=== PATIENT | male | born 1965 | race African-American/Black ===

== ENCOUNTER 2025-05-30 10:12 | Emergency (ER) | payer SELFPAY ==
--- NOTE | ~2025-05-30 | CT_ITS ---
CT abdomen pelvis w con Clinical History: upper abd pain, nvd . Comparison: None Technique: Axial images lung bases to symphysis pubis IV contrast information not listed in PACS Coronal, sagittal reformats CT images acquired with automatic exposure control for dose reduction DLP: 620 mGy-cm Findings: Lung bases: Clear. Visualized heart and pericardium: Unremarkable. Liver: Steatosis. Gallbladder: Unremarkable. Spleen: Enlarged. Pancreas: Regional stranding and mild fluid around head. Head mildly enlarged. Normal glandular enhancement. Regional vessels remain patent. Adrenal glands: Unremarkable. Kidneys: Right kidney- No hydronephrosis. No renal stones. Cortical defect. Small cyst. Left kidney- No hydronephrosis. No renal stones. Cortical cyst. Distal esophagus/stomach: Gastric antral wall thickening. Small bowel loops: Normal caliber and wall thickness. Colon: Normal caliber and wall thickness. Normal RLQ appendix. Nodes: No enlarged nodes. Peritoneum: No ascites. No free air. Urinary bladder: Unremarkable. Prostate: Prominent, with intravesicular protrusion. Bones: No acute bony abnormality. Prominent Schmorl's node superior endplate S1, inferior endplate L4. Soft tissues: Right inguinal hernia with fat. Aorta: No aneurysm or dissection. IVC: Unremarkable. Main portal vein/SMV/splenic vein: Patent. IMPRESSION: 1. Acute pancreatitis, mainly limited to pancreatic head. Head slightly enlarged, underlying mass not excluded. Recommend short interval follow-up MRI or endoscopic ultrasound. 2. Gastritis of antrum. Reviewed, dictated and finalized at location R. [facility]PER IMPRESSION: 1. Acute pancreatitis, mainly limited to pancreatic head. Head slightly enlarg ed, underlying mass not excluded. Recommend short interval follow-up MRI or end oscopic ultrasound. 2. Gastritis of antrum.
[2025-05-30 10:43] VITALS: BP 202/142; PULSE 98; RESP 16; TEMP 36.2; O2SAT 100
[2025-05-30 11:25] VITALS: BP 169/124; PULSE 97; RESP 18; O2SAT 95
[2025-05-30] MEDS: SODIUM CHLORIDE 0.9% IV 1,000 ML 999 ML IV CONT ×2 (11:36→12:14)
[2025-05-30 11:43] LABS: Alanine Aminotransferase 20 U/L (6-50); Albumin Level 4.5 g/dL (3.5-5.1); Alkaline Phosphatase 136 U/L (38-126); Anion Gap 7 mmol/L (4-12); Aspartate Amino Transferase 25 U/L (17-59); Bilirubin,Total 1.0 mg/dL (0.2-1.3); Blood Urea Nitrogen 18 mg/dL (9-20); Calcium 9.3 mg/dL (8.4-10.2); Carbon Dioxide 28 mmol/L (22-30); Chloride 98 mmol/L (98-107); Estimated CRCL calculation 60 ml/min; Estimated Glomerular Filt Rate 55; Glucose 293 mg/dL (65-110); Magnesium 2.2 mg/dL (1.6-2.3); Potassium 4.3 mmol/L (3.4-5.0); Sodium 133 mmol/L (137-145); Total Protein 8.8 g/dL (6.3-8.2)
[2025-05-30 11:55] LABS: Add Urine Microscopic? YES; Appearance Urine Clear (Clear); Glucose Urine UA 3+ mg/dL (Negative); Leukocyte Esterase Ur Negative LEU/UL (Negative); Nitrate Urine Negative (Negative); Non Pathogenic Casts 0-2; Specific Grav Ur 1.041 (1.001-1.035)
[2025-05-30 11:56] LABS: Hematocrit 47.7 % (42.0-52.0); Hemoglobin 17.7 g/dL (14.0-18.0); Immature Granulocyte Percent A 0.2 % (0-0.5); Lymphocytes Absolute Auto 2.13 K/mm3 (0.9-3.2); Mean Corpuscular HGB Conc 37.1 g/dl (32-36); Mean Corpuscular Hemoglobin 29.9 pg (26-34); Mean Corpuscular Volume 80.6 fl (80-100); Nucleated Red Blood Cells Absolute Auto 0.000 K/mm3 (0.0-0.012); Nucleated Red Blood Cells Perc 0.0 % (0.0-0.2); Platelet Count Result 147 k/mm3 (150-375); Red Blood Count 5.92 M/mm3 (4.6-6.20); White Blood Count 5.8 K/mm3 (4.5-10.0)
--- NOTE | 2025-05-30 12:08 | ED.RECABL ---
HPI - Recheck/Abnormal Lab/Rx General Chief Complaint: Recheck/Abnormal Lab/Rx Stated Complaint: ELEVATED BLOOD SUGAR, PREDIABETIC Time Seen by Provider: 05/30/25 11:15 Source: patient Mode of arrival: ambulatory Limitations: no limitations History of Present Illness HPI narrative: Patient is a 59 y/o male who presents to the ED with c/o N/V/D. Patient reports having persistent nausea, vomiting, diarrhea over the past 7 days. States he has been unable to keep down food or drink. States he has been having pain throughout his upper abdomen which has been intermittent. Notes he did not eat well over the . Denies sick contacts. Other family members have eaten the same foods. Denies fevers. States he went to an urgent care today and was noted to have glucose and ketones in his urine. POC glucose was elevated there. He was sent to the ED for further evaluation. Patient denies previous history of diabetes. He does have history hypertension and states he is mostly on medication for this, but does not take it. Has had issues with insurance, recently started a new job and is in the process of getting insurance. Related Data Allergies Allergy/AdvReac Type Severity Reaction Status Date / Time No Known Allergies Allergy Verified 05/30/25 10:14 Review of Systems Review of Systems: All systems reviewed & are unremarkable except as noted in HPI. All systems reviewed & are unremarkable except as noted in HPI and below Exam Narrative: GENERAL: Well appearing, obese with BMI of 30.8, non-toxic, in no acute distress. HEAD: Normocephalic, atraumatic. RESPIRATORY: Airway patent, respirations nonlabored. Clear to auscultation bilaterally, no rales, rhonchi, wheezing. CARDIOVASCULAR: Regular rate and rhythm without murmurs, rubs, or gallops. ABDOMINAL: Soft, mild diffuse tenderness, nondistended. Normoactive BS. MUSCULOSKELETAL: Moves all extremities. No gross deformities. SKIN: Warm, dry, normal color. NEURO: A&O X3. Speech clear. Cranial nerves II-XII grossly intact. Steady gait. No ataxic movements. PSYCHIATRIC: Appropriate mood and affect. Normal interaction. Course Vital Signs Vital signs: Vital Signs Temperature 97.2 F L 05/30/25 10:43 Pulse Rate 98 05/30/25 10:43 Respiratory Rate 16 05/30/25 10:43 Blood Pressure 202/142 H 05/30/25 10:43 Pulse Oximetry 100 05/30/25 10:43 Temperature 97.2 F L 05/30/25 10:43 Pulse Rate 89 05/30/25 16:08 Respiratory Rate 16 05/30/25 16:08 Blood Pressure 171/124 H 05/30/25 16:41 Pulse Oximetry 97 05/30/25 16:08 MDM MDM Narrative Medical decision making narrative: Patient presented to ED with 1 week history of nausea, vomiting, diarrhea. Intermittent upper abdominal pain. Unable to keep down food or drink. Also reporting elevated blood sugar at urgent care today without previous dx of diabetes. Patient hypertensive upon arrival. He reports history of previous hypertension. States he is supposed to be on medication for this but does not take it. Unsure of what medication. Vital signs are otherwise stable. BG upon arrival 312. CBC w/o leukocytosis. H&H stable. Platelets 147. CMP with sodium slightly low 133. Creatinine 1.34. No records to compare to. Fluids initiated. Blood sugar 293 on CMP. Normal bicarb. No anion gap. VBG without evidence of acidosis. No evidence of DKA at this time. A1c is 8.8%. Consistent with new onset diabetes. Lactic acid within normal range. Liver enzymes are within normal range. UA with evidence of dehydration. Fluids are ongoing. No signs of infection. CT scan of abdomen/pelvis was obtained: IMPRESSION: 1. Acute pancreatitis, mainly limited to pancreatic head. Head slightly enlarged, underlying mass not excluded. Recommend short interval follow-up MRI or endoscopic ultrasound. 2. Gastritis of antrum. Lipase is only 263. Given 2 L of fluid in the ED. Also given Pepcid. Triglycerides within normal range. Lactic acid within normal range. Discussed lab and imaging findings extensively with patient. He denies previous history of pancreatitis. Denies history of gallbladder issues. He does not drink alcohol. Pain is under control at this time. He has not required any pain control in the ED. Patient is feeling improved after IV fluids. Able to tolerate p.o. intake. Discussed discharge home to follow clear liquids, vs admission with close OP PCP/GI f/u. Also discussed starting patient on metformin and amlodipine for diabetes and HTN. Discussed risks and benefits of both. Utilized shared decision-making. Patient would prefer to go home. He does not wish to be admitted at this time. Discussed clear liquids, plenty of fluid hydration. Will also prescribe short course of pain medication, nausea medicine for home, Pepcid for gastritis. Discussed follow-up with GI. Discussed very strict return precautions. Also recommended patient continue to monitor blood sugars and blood pressures at home and keep recording of these. Patient is in agreement with this plan, feels comfortable going home, voiced understanding of return precautions. Discharged in stable condition. Blood pressure improved to 170 systolic at time of D/C. Patient is otherwise asymptomatic regarding hypertension. Denying any red flag symptoms. Likely result of noncompliance with previous medication. Differential Diagnosis Differential Diagnosis: DKA, hyperglycemia, HHS, gastroenteritis, gastritis, colitis, pancreatitis, dehydration Medical Records I have reviewed the following patient records and this information was taken into consideration when formulating the assessment and plan.: previous labs, previous ER visits, previous hospitalizations and previous clinic visits Lab Data MDM Lab Attestation statement: I personally reviewed the patient's lab results. 05/30/25 11:18 05/30/25 11:18 Labs: Lab Results 05/30/25 05/30/25 05/30/25 Range/Units 10:46 11:18 11:43 WBC 5.8 (4.5-10.0) K/mm3 RBC 5.92 (4.6-6.20) M/mm3 Hgb 17.7 (14.0-18.0) g/dL Hct 47.7 (42.0-52.0) % MCV 80.6 (80-100) fl MCH 29.9 (26-34) pg MCHC 37.1 H (32-36) g/dl RDW 11.9 (11.5-14.5) % Plt Count 147 L (150-375) k/mm3 MPV 11.0 H (7.4-10.4) fl Immature Gran % (Auto) 0.2 (0-0.5) % Neut % (Auto) 52.7 (45.5-73.1) % Lymph % (Auto) 37.0 (18.3-44.2) % [place] % (Auto) 8.5 (2.6-8.5) % Eos % (Auto) 0.9 (0-4.4) % Baso % (Auto) 0.7 (0.2-1.2) % Lymph # (Auto) 2.13 (0.9-3.2) K/mm3 [place] # (Auto) 0.5 (0.1-0.6) K/mm3 Eos # (Auto) 0.1 (0-0.3) K/mm3 Baso # (Auto) 0.0 (0.0-0.1) K/mm3 Abs Immat Gran (auto) 0.01 (0.00-0.031) K/mm3 Absolute Neuts (auto) 3.0 (1.3-6.7) K/mm3 Absolute Nucleated RBC 0.000 (0.0-0.012) K/mm3 Nucleated RBC % 0.0 (0.0-0.2) % Sodium 133 L (137-145) mmol/L Potassium 4.3 (3.4-5.0) mmol/L Chloride 98 (98-107) mmol/L Carbon Dioxide 28 (22-30) mmol/L Anion Gap 7 (4-12) mmol/L BUN 18 (9-20) mg/dL Creatinine 1.34 H (0.7-1.3) mg/dL Estim Creat Clear Calc 60 ml/min Estimated GFR 55 L (59 - ) Glucose 293 H (65-110) mg/dL POC Capillary Glucose 312 H (65-105) mg/dl Hemoglobin A1c 8.8 H (<5.7) % Lactic Acid (0.7-2.0) mmol/L Calcium 9.3 (8.4-10.2) mg/dL Phosphorus 3.4 (2.5-4.5) mg/dL Magnesium 2.2 (1.6-2.3) mg/dL Total Bilirubin 1.0 (0.2-1.3) mg/dL AST 25 (17-59) U/L ALT 20 (6-50) U/L Alkaline Phosphatase 136 H (38-126) U/L Total Protein 8.8 H (6.3-8.2) g/dL Albumin 4.5 (3.5-5.1) g/dL Triglycerides (<150) mg/dL Lipase (23-300) U/L Urine Color Yellow (Yellow) Urine Appearance Clear (Clear) Urine pH 5.0 (5.0-9.0) Ur Specific [place] 1.041 H (1.001-1.035) Urine Protein 2+ H (Negative) mg/dL Urine Glucose (UA) 3+ H (Negative) mg/dL Urine Ketones 2+ H (Negative) mg/dL Ur Blood (Man) Negative (Negative) Urine Nitrate Negative (Negative) Urine Bilirubin Negative (Negative) Urine Urobilinogen 0.2 (<2.0) mg/dL Leukocyte Esterase Rfl Negative (Negative) ALEJANDRA/UL Urine RBC 0-2 (0-2) /hpf Urine WBC 0-5 (0-3) /hpf Ur Squamous Epith Cells None seen (Few) /hpf Urine Bacteria None seen /hpf Urine Casts 0-2 05/30/25 Range/Units 12:45 WBC (4.5-10.0) K/mm3 RBC (4.6-6.20) M/mm3 Hgb (14.0-18.0) g/dL Hct (42.0-52.0) % MCV (80-100) fl MCH (26-34) pg MCHC (32-36) g/dl RDW (11.5-14.5) % Plt Count (150-375) k/mm3 MPV (7.4-10.4) fl Immature Gran % (Auto) (0-0.5) % Neut % (Auto) (45.5-73.1) % Lymph % (Auto) (18.3-44.2) % [place] % (Auto) (2.6-8.5) % Eos % (Auto) (0-4.4) % Baso % (Auto) (0.2-1.2) % Lymph # (Auto) (0.9-3.2) K/mm3 [place] # (Auto) (0.1-0.6) K/mm3 Eos # (Auto) (0-0.3) K/mm3 Baso # (Auto) (0.0-0.1) K/mm3 Abs Immat Gran (auto) (0.00-0.031) K/mm3 Absolute Neuts (auto) (1.3-6.7) K/mm3 Absolute Nucleated RBC (0.0-0.012) K/mm3 Nucleated RBC % (0.0-0.2) % Sodium (137-145) mmol/L Potassium (3.4-5.0) mmol/L Chloride (98-107) mmol/L Carbon Dioxide (22-30) mmol/L Anion Gap (4-12) mmol/L BUN (9-20) mg/dL Creatinine (0.7-1.3) mg/dL Estim Creat Clear Calc ml/min Estimated GFR (59 - ) Glucose (65-110) mg/dL POC Capillary Glucose (65-105) mg/dl Hemoglobin A1c (<5.7) % Lactic Acid 1.4 (0.7-2.0) mmol/L Calcium (8.4-10.2) mg/dL Phosphorus (2.5-4.5) mg/dL Magnesium (1.6-2.3) mg/dL Total Bilirubin (0.2-1.3) mg/dL AST (17-59) U/L ALT (6-50) U/L Alkaline Phosphatase (38-126) U/L Total Protein (6.3-8.2) g/dL Albumin (3.5-5.1) g/dL Triglycerides 94 (<150) mg/dL Lipase 263 (23-300) U/L Urine Color (Yellow) Urine Appearance (Clear) Urine pH (5.0-9.0) Ur Specific [place] (1.001-1.035) Urine Protein (Negative) mg/dL Urine Glucose (UA) (Negative) mg/dL Urine Ketones (Negative) mg/dL Ur Blood (Man) (Negative) Urine Nitrate (Negative) Urine Bilirubin (Negative) Urine Urobilinogen (<2.0) mg/dL Leukocyte Esterase Rfl (Negative) ALEJANDRA/UL Urine RBC (0-2) /hpf Urine WBC (0-3) /hpf Ur Squamous Epith Cells (Few) /hpf Urine Bacteria /hpf Urine Casts ABG Data ABG results: 05/30/25 12:15 VBG pH 7.426 H* VBG pCO2 39.1 L VBG pO2 28.0 L VBG HCO3 25.1 O2 Delivery Device Room air O2 Liters/Min 0.0 FiO2 21 Attestation: I personally reviewed and interpreted this ABG as follows: Imaging Data Attestation: I personally reviewed and interpreted this imaging study as follows: Radiologist's impression: ITS Impressions Abdomen/Pelvis CT 05/30/25 12:18 IMPRESSION: 1. Acute pancreatitis, mainly limited to pancreatic head. Head slightly enlarged, underlying mass not excluded. Recommend short interval follow-up MRI or endoscopic ultrasound. 2. Gastritis of antrum. Discharge Plan Discharge Clinical Impression: Diabetes mellitus, new onset, Asymptomatic hypertension Pancreatitis Qualifiers: Chronicity: acute Pancreatitis type: unspecified pancreatitis type Acute pancreatitis complication: unspecified Qualified Code(s): K85.90 - Acute pancreatitis without necrosis or infection, unspecified Patient Disposition: Home Condition: Stable Instructions: Antibiotic Form, Pancreatitis (ED), Clear Liquid Diet (ED), Chronic Hypertension (ED), Diabetic Hyperglycemia (ED), Hypertension and Diabetes (ED), Diabetes and Nutrition (ED), Diabetes and Exercise (ED), Type 2 Diabetes Management for Adults (ED) Additional Instructions: Take amlodipine daily for high blood pressure. Monitor blood pressures at home and keep recording of this. Follow-up closely with your primary care doctor. Take metformin twice daily as prescribed for diabetes. Monitor blood sugars at home and keep recording of these numbers as well. Follow-up closely with primary care doctor. You were diagnosed with pancreatitis today, however your pancreatic enzymes were within normal range. Recommend increasing fluid intake, clear liquid/bland diet over the next several days until pain and nausea are resolved. You may take Tylenol, [place] as needed for more severe pain. Utilize Zofran as needed for nausea. Recommend also taking Pepcid twice daily for stomach irritation. Follow-up with your primary care doctor and GI for further evaluation. Call offices to make appointments. Return to ED if you experience worsening or severe pain, unable to keep down food or drink, fevers, rectal bleeding, dark black stools, chest pain, difficulty breathing, severe headaches, numbness or weakness of arm or leg, severe dizziness or lightheadedness, passing out, or any other symptoms of concern. Patient Language: [place] Prescriptions: New amlodipine 5 mg tablet 5 mg PO DAILY Qty: 60 0RF metformin 500 mg tablet 500 mg PO BID Qty: 60 0RF hydrocodone-acetaminophen 5-325 mg tablet 1 tablet PO Q6H PRN (Reason: pain) Qty: 10 0RF ondansetron 4 mg tablet,disintegrating 4 mg PO Q8H PRN (Reason: nausea and vomiting) Qty: 15 0RF famotidine 20 mg tablet 20 mg PO BID Qty: 60 0RF (DME) lancets-blood glucose strips 30 gauge combo pack See Rx Instructions .Route Qty: 200 0RF Rx Instructions: As directed Follow-up/Referrals: PHYSICIAN,DEPUTY DIRECTOR OF FINANCE [Primary Care Provider, Internal Medicine] Bam Gómez MD [Physician, Gastroenterology] Landon Viera MD [Physician, Family Practice] Stand Alone Forms: Work/School Release IP Time of Disposition: 15:13
[2025-05-30 12:11] LABS: Hemoglobin A1C 8.8 % (<5.7)
[2025-05-30] MEDS: FAMOTIDINE 20 MG/2 ML VIAL IV PUSH (12:13)
[2025-05-30] MEDS: ONDANSETRON INJ 4 MG/2 ML VIAL IV PUSH (12:13)
[2025-05-30 12:18] LABS: Fractional Inspired Oxygen 21 %; HCO3 VBG 25.1 mEq/l (24.0-30.0); PCO2 VBG 39.1 mmHg (42.0-48.0); PO2 VBG 28.0 mmHg (35.0-45.0); pH VBG 7.426 (7.300-7.400)
[2025-05-30 12:19] LABS: Liters per Minute 0.0 LPM
[2025-05-30 13:11] LABS: Lipase 263 U/L (23-300); Triglycerides 94 mg/dL (<150)
[2025-05-30 13:15] VITALS: BP 219/131; PULSE 98; RESP 16; O2SAT 98
[2025-05-30 16:08] VITALS: BP 212/110; PULSE 89; RESP 16; O2SAT 97
[2025-05-30 16:41] VITALS: BP 171/124
== END 2025-05-30 17:05 | disposition home or self-care (01) ==
PROVIDERS: Emergency Medicine; Emergency Provider Physician Assistant
DX: K85.90 Acute pancreatitis without necrosis or infection, unspecified (principal); E11.9 Type 2 diabetes mellitus without complications; R11.2 Nausea with vomiting, unspecified; I10 Essential (primary) hypertension
CPT/HCPCS: 36415; 74177; 80053; 81001; 82803; 82948; 83036; 83605; 83690; 83735; 84100; 84478; 85025; 96361; 96374; 96375; 99284; A9270; J0360; J2405; J7030; Q9967

== ENCOUNTER 2025-06-05 13:02 | Emergency (ER) | payer SELFPAY ==
--- OUTSIDE RECORDS SUMMARY | 2025-06-05 08:40 | XMS_ITS | Encounter Summary ---
Author Organization [facility] Address [address] [email or web address] [address] Care Team Providers Care Physical Chemistry Professor Name Role Phone Pcp, No Primary Care Provider [phone] Reason for Visit * Reason Comments Blood Pressure Evaluation Encounter Details Date Type Department Care Team (Late st Contact Info) Description 06/05/2025 7:40 AM [facility] E-Visit [facility] [address] [place] [address] Viridiana Vitale NP [address] [place] [address] Hypertension, unspecified type (Primary Dx); Diabetes mellitus, new onset (CMS/HCC) Social History Tobacco Use Types Packs/Day Years Used Date Smoking Tobacco: Never Smokeless Tobacco: Never Tobacco Cessation:Counseling Given: Yes Sex and Gender Information Value Date Recorded Sex Assigned at Not on file Legal Sex Male 8:13 PM EST Gender Identity Not on file Sexual Orientation Not on file documented as of this encounter Last Filed Vital Signs Vital Sign Reading Time Taken Comments Blood Pressure 180/116 06/05/2025 7:48 AM [facility] Pulse - - Temperature - - Respiratory Rate - - Oxygen Saturation - - Inhaled Oxygen Concentration - - Weight - - Height - - Body Mass Index - - documented in this encounter Functional Status * Is the person deaf or does he/she have serious difficulty hearing? Answer Date of Assessment Author * Is this person blind or does he/she have serious difficulty seeing even when wearing glasses? Answer Date of Assessment Author * Does this person have serious difficulty walking or climbing stairs? Answer Date of Assessment Author * Does this person have difficulty dressing or bathing? Answer Date of Assessment Author * Because of a physical, mental, or emotional condition, does this person have difficulty doing errands alone such as visiting a doctor's office or shopping? Answer Date of Assessment Author documented as of this encounter Mental Status * Because of a physical, mental, or emotional condition, does this person have serious difficulty concentrating, remembering, or making decisions? Answer Entry Date Author documented in this encounter Patient Instructions * Patient Instructions* Viridiana Vitale NP - 06/05/2025 7:40 AM [facility] Images from the original note were not included. Seek immediate emergency medical attention if you experience sudden vision loss or eye pain, severeor worsening abdominal pain, difficulty swallowing, stiff neck, shortness of breath, coughing or vomiting up blood, chest pain, increased fever, unexplained weight loss, or blood in stool. Report to the nearest emergency department for any of the following: Fever >99.9 F, flank pain,nausea/vomiting, or abdominal pain. If symptoms do not improve within 2-3 days of treatment or do not fully resolve return to [facility] or primary care provider for re-evaluation. It is important to promptly share test results with your healthcare provider. Seek immediate medical attention if you develop any chest discomfort, difficulty breathing, severe headache, confusion, numbness or weakness, difficulty in speech or pronouncing words or sudden vision problems. Your blood pressure was very high today at 180 over 120 or higher. You are being referred to a higher level of care TODAY for additional evaluation and/or testing and possible treatment. If you develop any chest discomfort, difficulty breathing, severe headache, confusion, numbness or weakness, difficulty with speech or word pronunciation or sudden vision problems, call 911 immediately. Your blood pressure was found to be in an acceptable range today and we recommend a follow up bloodpressure appointment in 6 weeks as long as your health does not change. Blood pressure varies from day to day and we want to ensure your blood pressure is not rising higher than recommended. Occasiona l/periodic blood pressure checks are always helpful. If changes in your health occur during this time, please have your blood pressure checked sooner. Your blood pressure was higher than recommended and medication has been started or changed to help lower it. It is very important you have it rechecked in 3-7 days. Return to [facility] or make an appointment with your primary care provider. If changes in your health occur during this time, please have your blood pressure checked sooner. High Blood Pressure Seek Medical Attention If You: Think you are have having a reaction to medications you are taking Have recurrent headaches or feel dizzy Have swelling in your ankles Have trouble with your vision What is High Blood Pressure? High blood pressure (also called hypertension) is when your blood moves through your arteries at a higher pressure than normal and that forces your heart to work harder to pump the blood. What are the Complications of High Blood Pressure? When your blood pressure gets too high or stays high for a long time, it can cause health problems such as: Kidney disease or kidney failure Heart attack and heart failure Stroke Vision problems Circulation problems, poor blood supply to the legs How are the causes of High Blood Pressure? There are many different causes and your provider can help you find out what might be causing your pressure to be too high. What are the Signs of High Blood Pressure? High blood pressure doesn???t usually have warning signsor symptoms, so many people don???t realize they have it and that is why regular monitoring is important. Prevention and Treatment: Often high blood pressure can be controlled with lifestyle changes and when necessary, medications. Adopting heart healthy habits can help: Maintain a Healthy Weight Eat a heart healthy diet full of vegetables, fruits and whole grains that are high in fiber Be Physically Active every day Find heart healthy ways to reduce stress and increase relaxation Don???t use tobacco products Limit your intake of alcohol, caffeine and salt Monitor your blood pressure regularly: ask your provider how often Take your medications as prescribed, even when you???re feeling well 07/2016 www.[email or web address] 1.866.389.ELVIE (5977 Blood Pressure Medications and You High Blood Pressure Medications Your provider has determined you need prescription medication, in addition to lifestyle changes, tocontrol your high blood pressure. By treating high blood pressure, you can help prevent a stroke, heart attack, heart failure, kidney failure and peripheral artery disease. What types of high blood pressure medications are available? There are many medications, known as antihypertensives, available by prescription to lower your blood pressure. Your provider has selected a medication determined to be most appropriate for you. People often respond differently to medications. Most people go through a trial period to find the medication that works best for them. Give your body a chance to adjust to the medication. It may take some time, but the results will usually be worth it. If you don't feel well after taking a medication, let your healthcare provider know so he/she can adjust your treatment. Never change or stop taking your blood pressure medication without discussing with your healthcare provider first. Tell all of your healthcare providers about all of the nvnm-gzo-jnqxkea and prescription medications you are taking. Always read the labels and warnings of rjhq-kol-tenlziz (OTC) medications. Some medications and supplements can raise your blood pressure and/or interfere with the effectiveness of your blood pressure medication. A few examples of OTC medications to be cautious of include cold and flu remedies suchas nasal decongestants, non-steroidal anti-inflammatory drugs (NSAIDs) such as ibuprofen, and diet pills. If you are unsure if you can take an OTC medication, ask your pharmacist or healthcare provider before taking. Even if you're feeling fine, NEVER cut back or stop taking your blood pressure medication. Take your medication exactly as prescribed and never adjust or stop taking without discussing with your healthcare provider. Taking your medication every other day or splitting in half to make them last longer may cause your blood pressure to rise to dangerous levels. If you feel your diet, increased physical activity or other lifestyle changes have lowered your blood pressure, review your measurements with your healthcare provider. Keep appointments with your healthcare providers. It's very important to monitor your progress and make adjustments to your treatment to keep your blood pressure under control. High blood pressure is a lifelong condition, and by partnering with yourhealthcare team, you can successfully reach your treatment goals and enjoy the benefits of better health. A johnson to better control of your blood pressure is a good partnership with your healthcare team. Self-Monitoring is important: Self-monitoring at home is very helpful in your long-term management of diabetes. Please remember to bring in your home blood sugar log. There are many health apps that might be useful. Consider exploring these options. documented in this encounter Progress Notes * Viridiana Vitale NP - 06/05/2025 7:40 AM [facility] Virtual Visit Subjective: Subjective Patient ID: Delta Beasley is a 60 y.o. male. HPI Patient Dx last week with HTN, DM type 2 and Pancreatitis and recently discharged from hospital. BPhas improved but remains elevated at home. Patient is asymptomatic. Check BP daily at home. Is currently taking 5 mg of Amlodipine. Does not have an established PCP or Pay Station Collector as recommended yet; awaiting insurance. Check BS regularly at home getting numbers in the 140s but after dinner gets readings in the 200s. Denies hypoglycemic events. Unable to view labs in care everywhere but notes A1C is 8. Blood Pressure Evaluation Reason for visit: Initial visit Have you seen your PCP for this condition: No Duration of condition: Newly diagnosed Do you have a scheduled appointment: No If no PCP, why: Other (no insurance) Associated symptoms: no blurred vision, no headaches, no dizziness, no chest pain, no shortness of breath, no malaise and no change in speech and language CAD risks: diabetes Prescribed HTN medication: Yes Review of Systems Constitutional: Negative for fatigue and fever. Eyes: Negative for blurred vision. Respiratory: Negative for shortness of breath. Cardiovascular: Negative for chest pain and palpitations. Neurological: Negative for dizziness and headaches. Tobacco Use History[1] History reviewed. No pertinent past medical history. History reviewed. No pertinent surgical history. History reviewed. No pertinent family history. Objective: Objective Physical Exam Constitutional: General: He is not in acute distress. Appearance: Normal appearance. He is not ill-appearing. Comments: Patient appears fatigued during video visit. HENT: Head: Normocephalic. Pulmonary: Effort: Pulmonary effort is normal. No respiratory distress. Neurological: Mental Status: He is alert. Psychiatric: Attention and Perception: Attention normal. Mood and Affect: Mood normal. Speech: Speech normal. Behavior: Behavior normal. Behavior is cooperative. Thought Content: Thought content normal. Cognition and Memory: Cognition normal. Judgment: Judgment normal. Assessment/Plan: Assessment HPI provided by Self Based on today's visit:history and physical exam only, as no relevant testing deemed necessary patient's visit diagnosis is/includes No diagnosis found. Patient has a history of chronic conditions and those listed in the visit diagnoses were reviewed today. They are currently unstable on medications. Plan Treatment plan includes: Orders Placed: No orders of the defined types were placed in this encounter. Medications ordered this visit Pending Prescriptions Disp Refills amLODIPine (NORVASC) 10 MG tablet 30 tablet 0 Sig: Take 1 tablet (10 mg total) by mouth daily for 30 days Current medication list and any new medications prescribed or recommended today were reviewed with the patient and specific instructions were provided Yes Provider Recommendations Amlodipine dosage of 5mg is adjusted to 10 mg during today's visit. Continue to monitor every day. [facility] today to establish care and for further management of diabetes. Please bring all available labs. In the event your BP is higher than observed today or you begin to have symptoms of high blood pressure, please follow up in the ER. 48 hours follow up call placed. Follow up care instructions were provided and reviewed?with the Patient. All questions were answered. Patient verbalized understanding of plan of care today. Patient was seen for blood pressure treatment and blood pressure medication change. Patient received counseling on healthy diet, weight loss, and stress reduction. I am having Delta Beasley maintain his metFORMIN, HYDROcodone-acetaminophen, ondansetron, famotidine, amLODIPine, lancets-blood glucose strips, and HYDROcodone-acetaminophen. I have verified the patient's location, and I am licensed to practice in that state. Audio and video technology were used to conduct this virtual visit. Patient (or parent/guardian as applicable) consented to virtual care. Patient is: not a minor [1] Social History Tobacco Use Smoking Status Never Smokeless Tobacco Never documented in this encounter Plan of Treatment Not on file documented as of this encounter Visit Diagnoses Diagnosis Hypertension, unspecified type- Primary Diabetes mellitus, new onset (CMS/HCC) documented in this encounter Care Teams Physical Chemistry Professor Relationship Specialty Start Date End Date Pcp, No PCP - General Family Medicine 06/05/25 documented as of this encounter
[2025-06-05 13:06] VITALS: BP 186/110; PULSE 79; RESP 18; TEMP 36.4; O2SAT 97
[2025-06-05 14:52] VITALS: RESP 18; O2SAT 97
[2025-06-05 14:54] VITALS: BP 193/122; PULSE 87; RESP 14; O2SAT 96
--- NOTE | 2025-06-05 17:14 | ED_ITS ---
HPI - Recheck/Abnormal Lab/Rx General Chief Complaint: Recheck/Abnormal Lab/Rx Stated Complaint: HTN Time Seen by Provider: 06/05/25 15:01 History of Present Illness HPI narrative: Patient with history of hypertension, diabetes, has been out of care of PCP for a while. He takes metformin 500 once a day, takes amlodipine 5 mg daily. Has no symptoms. Related Data Allergies Allergy/AdvReac Type Severity Reaction Status Date / Time No Known Allergies Allergy Verified 06/05/25 14:55 Review of Systems Review of Systems: All systems reviewed & are unremarkable except as noted in HPI and below Exam Narrative: EXAMINATION OF ORGAN SYSTEMS/BODY AREAS: Constitutional: Vital signs per nursing GENERAL:No acute distress, non-toxic appearing. HEAD: Normal with no signs of head trauma. EYES: EOMI, conjunctiva normal ENT: Hearing grossly intact LUNGS: Nonlabored breathing. HEART: Regular rate and rhythm ABD: Soft, nontender to palpation EXT: Normal range of motion SKIN: No rashes or lesions. NEURO: Alert. No gross focal sensory or strength deficits. No facial droop, speech is clear, normal gait. PSYCH: Normal affect Course Vital Signs Vital signs: Vital Signs Temperature 97.5 F L 06/05/25 13:06 Pulse Rate 79 06/05/25 13:06 Respiratory Rate 18 06/05/25 13:06 Blood Pressure 186/110 H 06/05/25 13:06 Pulse Oximetry 97 06/05/25 13:06 Oxygen Delivery Room Air 06/05/25 13:06 Temperature 97.5 F L 06/05/25 13:06 Pulse Rate 87 06/05/25 14:54 Respiratory Rate 14 06/05/25 14:54 Blood Pressure 193/122 H 06/05/25 14:54 Pulse Oximetry 96 06/05/25 14:54 Oxygen Delivery Room Air 06/05/25 13:06 MDM MDM Narrative Medical decision making narrative: Patient with asymptomatic hypertension. No signs or symptoms of end organ dysfunction; no chest pain or shortness of breath, neurological deficits, severe headaches, visual disturbance, oliguria, or symptoms of dissection/AAA). Long- term risks of hypertension, especially uncontrolled, were discussed including increased risks of kidney disease, vascular disease, stroke and heart disease. We discussed lifestyle modifications including diet and exercise. I did review his recent labs here, I will refill his amlodipine, start him on losartan, and increase his metformin, and provide script for short course, patient expressed understanding of the instructions and strongly advised to follow-up with PMD for further management. Differential Diagnosis Differential Diagnosis: Hypertension, diabetes, etc. Discharge Plan Discharge Clinical Impression: Asymptomatic hypertension Patient Disposition: Home Condition: Stable Instructions: Chronic Hypertension (ED), Hypertension and Diabetes (ED) Additional Instructions: Please follow up with a primary care doctor, start the medications as prescribed. You can always return for any further issues especially if you develop any symptoms such as severe headache, new numbness or weakness anywhere, abdominal pain, or anything else concerning Patient Language: Icelandic Prescriptions: New amlodipine 10 mg tablet 10 mg PO DAILY Qty: 30 0RF metformin 500 mg tablet 500 mg PO BID Qty: 60 0RF losartan 25 mg tablet 25 mg PO DAILY Qty: 30 0RF No Action amlodipine 5 mg tablet 5 mg PO DAILY Qty: 60 0RF metformin 500 mg tablet 500 mg PO BID Qty: 60 0RF hydrocodone-acetaminophen 5-325 mg tablet 1 tablet PO Q6H PRN (Reason: pain) Qty: 10 0RF ondansetron 4 mg tablet,disintegrating 4 mg PO Q8H PRN (Reason: nausea and vomiting) Qty: 15 0RF famotidine 20 mg tablet 20 mg PO BID Qty: 60 0RF (DME) lancets-blood glucose strips 30 gauge combo pack See Rx Instructions .Route Qty: 200 0RF Rx Instructions: As directed Follow-up/Referrals: PHYSICIAN,HORSE TRAINER [Primary Care Provider, Internal Medicine] aLndon Viera MD [Physician, Family Practice] - 3 Days
--- OUTSIDE RECORDS SUMMARY | 2025-06-05 20:36 | XMS_ITS | Clinical Summary ---
Author Organization [facility][1] [employer] Address [address] [place] [address] Care Team Providers Care Chartered Wealth Manager Name Role Phone Pcp, No Primary Care Provider [phone] Allergies No known active allergies Medications metFORMIN (GLUCOPHAGE) 500 MG tablet TAKE 1 TABLET BY MOUTH TWICE DAILY 5 Active HYDROcodone-acetam inophen (NORCO) 5-325 mg tablet TAKE 1 TABLET BY MOUTH EVERY 6 HOURS NEEDED FOR PAIN 5 Active ondansetron (ZOFRAN-ODT) 4 MG disintegrating tablet DISSOLVE 1 TABLET ON THE TONGUE EVERY 8 HOURS NEEDED FOR NAUSEA OR VOMITING 5 Active famotidine (PEPCID) 20 MG tablet TAKE 1 TABLET BY MOUTH TWICE DAILY Active lancets-blood glucose strips (FORA [id number]-F24 STRP-LNCT) 30 gauge cmpk 5 Active HYDROcodone-acetam inophen (NORCO) 5-325 mg tablet Take by mouth 5 Active amLODIPine (NORVASC) 10 MG tablet Take 1 tablet (10 mg total) by mouth daily for 30 days 30 tablet 5 026 Active amLODIPine (NORVASC) 5 MG tablet Take 1 tablet (5 mg total) by mouth 5 025 Discontin ued(Dose adjustmen t) Active Problems Problem Noted Date Diagnosed Date Asymptomatic hypertension 06/05/2025 Diabetes mellitus, new onset 06/05/2025 Pancreatitis 06/05/2025 Encounters Date Type Department Care Team Description 06/05/2025 7:40 AM [facility] E-Visit [facility] [address] [place] [address] Viridiana Vitale NP Hypertension, unspecified type (Primary Dx); Diabetes mellitus, new onset (CMS/HCC) from Last 3 Months Social History Tobacco Use Types Packs/Day Years Used Date Smoking Tobacco: Never Smokeless Tobacco: Never Tobacco Cessation:Counseling Given: Yes Sex and Gender Information Value Date Recorded Sex Assigned at Not on file Legal Sex Male 8:13 PM EST Gender Identity Not on file Sexual Orientation Not on file Last Filed Vital Signs Vital Sign Reading Time Taken Comments Blood Pressure 180/116 06/05/2025 7:48 AM [facility] Pulse - - Temperature - - Respiratory Rate - - Oxygen Saturation - - Inhaled Oxygen Concentration - - Weight - - Height - - Body Mass Index - - Plan of Treatment Health Maintenance Due Date Last Done Comments Colorectal Cancer: COLONOSCO PY Screening every 10 yrs (or Modifier) 1965 Diabetes: Retinopathy Screening 1975 Depression: Screening Annual ly using PHQ-2/9 in Adults 18 yrs or above (or HM Modifier)([facility]) 1983 Diabetes Care Foot Exam Scre ening: Yearly in adults with Diabetes (or HM Modifiers)([facility]) 1983 Diabetes Care: Kidney Health Evaluation Annually in adults aged 18 to 85 yrs (or HM Modifier)([facility]) 1983 Hepatitis C Virus Infection in Adolescents and Adults: Screening (or Modifier) ([facility]) 1983 Hypertension Control in Adul ts with Diabetes: 18-85 yrs old with BP >130/80 ([facility]) 1983 LAMAR Screening: Once using ST OP-BANG Questionnaire for Adults with Conditions or high BMI([facility]) 1983 SDOH Screening Reminder: Jessica mack for all adults ([facility]) 1983 DTaP/Tdap/Td Vaccines ([facility]) (1 - Tdap) 1984 Pneumococcal Vaccination Scr eening: Patients 50+ yrs of age ([facility]) (1 of 2 - PCV) 1984 Diabetes Care: Statin Therap y for adults with DM ages 21+ yrs old ([facility]) 1986 Colorectal Cancer Screening 45 -75 Yrs (or HM Modifier ) 2010 Colorectal Cancer: FLEXIBLE SIGMOIDOSCOPY Screening every 5 yrs 2010 Colorectal Cancer: Fecal Imm unochemical Test (FIT) Annually [facility] 2010 Colorectal Cancer: High-sens itivity gFOBT Screening Annually [facility] 2010 Colorectal Cancer: Stool Col oguard Screening every 3 yrs 2010 Colorectal Cancer:CT Colonography Screening every 5 yr s 2010 Zoster/Shingles Vaccine Seri es Screening: Adults aged 18+ yrs (or HM Modifiers)([facility]) (1 of 2) 2015 Flu Vaccination: Yearly for ages 18mos through 64 years (or Modifier)([facility]) 01/25/2025 COVID-19 Vaccine Screening: Initial Series and Booster Status ([facility]) (2024- season) 2025 RSV Vaccines (1 - 1-dose 75+ series) 2040 [employer] Not on file Care Teams Chartered Wealth Manager Relationship Specialty Start Date End Date Pcp, No PCP - General Family Medicine 06/05/25
== END 2025-06-05 15:43 | disposition home or self-care (01) ==
LOC: ANHED 15:34
PROVIDERS: Emergency Provider Emergency Medicine
DX: I10 Essential (primary) hypertension (principal); E11.9 Type 2 diabetes mellitus without complications
CPT/HCPCS: 31899